=== PATIENT | male | born 1950 | race Caucasian/White ===

== ENCOUNTER → 2016-11-30 | Outpatient (REF) | payer MEDICARE | LOC: M LAB REF 12:10 | PROVIDERS: ATTEND Internal Medicine | DX: G40.309 Generalized idiopathic epilepsy and epileptic syndromes, not intractable, without status epilepticus (principal) ==

== ENCOUNTER → 2017-01-26 | Outpatient (REF) | payer MEDICARE | LOC: M SMT 16:54 | PROVIDERS: ATTEND Urology | DX: C61 Malignant neoplasm of prostate (principal) ==

== ENCOUNTER → 2017-05-07 | Outpatient (CLI) | payer MEDICARE | LOC: M SMT 10:40 | PROVIDERS: ATTEND Urology | DX: C61 Malignant neoplasm of prostate (principal) ==

== ENCOUNTER → 2017-06-03 | Outpatient (REF) | payer MEDICARE ==
[~2017-06-03] MED LIST: DILA100C PO; LAMO200T PO; LISI10TA4 PO; PERC5TAB12 PO; PLAV1TAB2 PO; SIMV40TA2 PO
[2017-06-03 14:09] LABS: FOLATE > 24.0 NG/ML (>5.4)
[2017-06-03 14:48] LABS: ALBUMIN 3.9 GM/DL (3.2-5.2); ALBUMIN/GLOBULIN RATIO 1.22 (1.00-1.93); ALKALINE PHOSPHATASE 114 U/L (45-117); ALT/SGPT 23 U/L (12-78); ANION GAP 8 MEQ/L (8-16); AST/SGOT 19 U/L (15-37); BILIRUBIN,TOTAL 0.3 MG/DL (0.2-1.0); BLOOD UREA NITROGEN 24 MG/DL (7-18); CALCIUM LEVEL 8.8 MG/DL (8.8-10.2); CARBON DIOXIDE LEVEL 27 MEQ/L (21-32); CHLORIDE LEVEL 105 MEQ/L (98-107); CHOLESTEROL LEVEL 147 MG/DL (<200); CREATININE FOR GFR 1.28 MG/DL (0.70-1.30); GLOMERULAR FILTRATION RATE 59.5 (>49); GLUCOSE, FASTING 79 MG/DL (80-110); POTASSIUM SERUM 4.5 MEQ/L (3.5-5.1); SODIUM LEVEL 140 MEQ/L (136-145); TOTAL PROTEIN 7.1 GM/DL (6.4-8.2); TRIGLYCERIDES LEVEL 91 MG/DL (<150)
== END ==
LOC: M LAB REF 13:24
PROVIDERS: ATTEND Internal Medicine
DX: I10 Essential (primary) hypertension (principal); G40.909 Epilepsy, unspecified, not intractable, without status epilepticus; Z79.899 Other long term (current) drug therapy; Z12.5 Encounter for screening for malignant neoplasm of prostate
CPT/HCPCS: 80053; 80061; 80175; 80185; 82746; G0103

== ENCOUNTER → 2017-08-04 | Outpatient (CLI) | payer MEDICARE | LOC: M SMT 14:56 | PROVIDERS: ATTEND Urology | DX: C61 Malignant neoplasm of prostate (principal) ==

== ENCOUNTER → 2017-08-31 | Outpatient (CLI) | payer MEDICARE ==
--- NOTE | 2017-08-31 12:19 | REP ---
Prostate sonography: History: Elevated PSA. Sonographic findings: Trans rectal prostate sonography demonstrates unremarkable seminal vesicles. Prostate gland is heterogeneously enlarged with calcifications and cystic changes noted. Glandular dimensions are measured at 5.1 x 4.0 x 5.0 cm with a calculated glandular volume of 52.8 ml. In the right side of the gland there is a 0.7 cm nodule and a 0.5 cm nodule. On the left a 1.0 cm nodule is seen. Transrectal sonographic guidance provided to Dr. Melendez who performed trans rectal ultrasound guided needle biopsy procedure . Signed by Favian Gannon MD 08/31/2017 12:10 P
== END ==
LOC: M SMT PRO 08:44
PROVIDERS: ATTEND Urology
DX: C61 Malignant neoplasm of prostate (principal); R97.20 Elevated prostate specific antigen [PSA]
CPT/HCPCS: 76872; 76942; G0416

== ENCOUNTER → 2017-12-02 | Outpatient (CLI) | payer MEDICARE ==
[2017-12-02 21:11] LABS: PROSTATIC SPECIFIC AG MONITOR 9.52 NG/ML (< 4.0)
== END ==
LOC: M SMT 13:06
DX: C61 Malignant neoplasm of prostate (principal)
CPT/HCPCS: 84153

== ENCOUNTER → 2018-01-05 | Outpatient (REF) | payer MEDICARE ==
[2018-01-05 14:46] LABS: PHENYTOIN (DILANTIN) 12.5 UG/ML (10.0-20.0)
== END ==
LOC: M LAB REF 13:05
DX: G40.309 Generalized idiopathic epilepsy and epileptic syndromes, not intractable, without status epilepticus (principal)

== ENCOUNTER → 2018-01-05 | Outpatient (REF) | payer MEDICARE | LOC: M LAB REF 16:15 | DX: L72.3 Sebaceous cyst (principal); G40.309 Generalized idiopathic epilepsy and epileptic syndromes, not intractable, without status epilepticus | CPT/HCPCS: 80185 ==

== ENCOUNTER → 2018-02-16 | Outpatient (CLI) | payer MEDICARE ==
[2018-02-16 19:17] LABS: PROSTATIC SPECIFIC AG MONITOR 9.36 NG/ML (< 4.0)
== END ==
LOC: M SMT 14:38
DX: C61 Malignant neoplasm of prostate (principal)
CPT/HCPCS: 84153

== ENCOUNTER → 2018-05-26 | Outpatient (CLI) | payer MEDICARE ==
[2018-05-26 13:22] LABS: PROSTATIC SPECIFIC AG MONITOR 9.71 NG/ML (< 4.0)
== END ==
LOC: M SMT 10:47
DX: C61 Malignant neoplasm of prostate (principal)
CPT/HCPCS: 84153

== ENCOUNTER → 2018-07-11 | Outpatient (REF) | payer MEDICARE ==
[2018-07-11 19:42] LABS: PHENYTOIN (DILANTIN) 12.5 UG/ML (10.0-20.0)
== END ==
LOC: M LAB REF 18:40
DX: G40.309 Generalized idiopathic epilepsy and epileptic syndromes, not intractable, without status epilepticus (principal)
CPT/HCPCS: 80185

== ENCOUNTER → 2018-09-07 | Outpatient (CLI) | payer MEDICARE | LOC: M SMT 11:12 | DX: C61 Malignant neoplasm of prostate (principal) | CPT/HCPCS: 84153 ==

== ENCOUNTER → 2018-09-20 | Outpatient (CLI) | payer MEDICARE | LOC: M SMT PRO 08:54 | DX: C61 Malignant neoplasm of prostate (principal) | CPT/HCPCS: G0416 ==

== ENCOUNTER → 2019-01-06 | Outpatient (CLI) | payer MEDICARE ==
[~2019-01-06] MED LIST changes: -LAMO200T PO; +LAMO200T2 PO
== END ==
LOC: M SMT 13:20
PROVIDERS: ATTEND Urology
DX: C61 Malignant neoplasm of prostate (principal)

== ENCOUNTER → 2019-01-16 | Outpatient (REF) | payer MEDICARE | LOC: M LAB REF 13:56 | PROVIDERS: ATTEND Internal Medicine | DX: G40.309 Generalized idiopathic epilepsy and epileptic syndromes, not intractable, without status epilepticus (principal) ==

== ENCOUNTER → 2019-03-28 | Outpatient (CLI) | payer MEDICARE | LOC: M SMT 14:44 | PROVIDERS: ATTEND Urology | DX: C61 Malignant neoplasm of prostate (principal) ==

== ENCOUNTER → 2019-07-06 | Outpatient (CLI) | payer MEDICARE | LOC: M SMT 13:35 | PROVIDERS: ATTEND Urology | DX: C61 Malignant neoplasm of prostate (principal) ==

== ENCOUNTER → 2019-07-25 | Outpatient (REF) | payer MEDICARE | LOC: M LAB REF 17:03 | PROVIDERS: ATTEND Internal Medicine | DX: G40.309 Generalized idiopathic epilepsy and epileptic syndromes, not intractable, without status epilepticus (principal) ==

== ENCOUNTER → 2019-10-03 | Outpatient (CLI) | payer MEDICARE | LOC: M SMT 15:10 | PROVIDERS: ATTEND Urology | DX: C61 Malignant neoplasm of prostate (principal) ==

== ENCOUNTER → 2019-10-31 | Outpatient (CLI) | payer MEDICARE ==
[~2019-10-31] MED LIST changes: -LAMO200T2 PO; +LAMO200T3 PO; -SIMV40TA2 PO; +SIMV40TA20 PO
--- NOTE | 2019-10-31 12:34 | REPPI ---
TRANSRECTAL PROSTATE ULTRASOUND WITH ULTRASOUND GUIDANCE FOR PROSTATE BIOPSY: Real-time sonographic evaluation of the prostate performed. Prostate measures 5.0 x 3.9 x 5.3 cm for a total volume of 52.6 mL. Echotexture is heterogeneous. Ultrasound guidance was provided for Dr. Melendez who performed ultrasound-guided biopsy of the prostate. Electronically Signed by James Aragon MD 11/03/2019 05:11 P
== END ==
LOC: M SMT PRO 09:25
PROVIDERS: ATTEND Urology
DX: C61 Malignant neoplasm of prostate (principal)
CPT/HCPCS: 55700; 76942; G0416

== ENCOUNTER → 2020-01-23 | Outpatient (REF) | payer MEDICARE ==
[2020-01-23 17:13] LABS: PHENYTOIN (DILANTIN) 18.7 UG/ML (10.0-20.0)
[2020-01-23 17:17] LABS: FOLATE 14.4 NG/ML (>5.4)
== END ==
LOC: M LAB REF 16:17
PROVIDERS: ATTEND Internal Medicine
DX: G40.309 Generalized idiopathic epilepsy and epileptic syndromes, not intractable, without status epilepticus (principal)

== ENCOUNTER → 2020-05-06 | Outpatient (CLI) | payer MEDICARE | LOC: M PLALAB 14:03 | PROVIDERS: ATTEND Urology | DX: C61 Malignant neoplasm of prostate (principal) ==

== ENCOUNTER → 2020-07-30 | Outpatient (REF) | payer MEDICARE | LOC: M LAB REF 19:27 | PROVIDERS: ATTEND Internal Medicine | DX: G40.309 Generalized idiopathic epilepsy and epileptic syndromes, not intractable, without status epilepticus (principal) ==

== ENCOUNTER 2020-10-20 12:30 | Emergency (ER) | payer MEDICARE ==
[~2020-10-20] VITALS: Ht 180.3 cm; Wt 99.1 kg
[2020-10-20 13:01] LABS: BASO % 0.6 % (0.0-1.0); EOS # 0.4 10^3/uL (0.0-0.5); EOS % 6.6 % (0.0-3.0); HEMATOCRIT 47.6 % (42.0-52.0); HEMOGLOBIN 15.9 g/dl (13.5-17.5); LYMPH # 1.7 10^3/uL (1.5-5.0); LYMPH % 26.3 % (24.0-44.0); MEAN CORPUSCULAR HEMOGLOBIN 31.5 pg (27.0-33.0); MEAN CORPUSCULAR HGB CONC 33.4 g/dl (32.0-36.5); MEAN CORPUSCULAR VOLUME 94.4 fl (80.0-96.0); MONO # 0.9 10^3/uL (0.0-0.8); MONO % 13.9 % (0.0-5.0); NEUTROPHILS # 3.4 10^3/uL (1.5-8.5); NEUTROPHILS % 52.3 % (36.0-66.0); PLATELET COUNT, AUTOMATED 303 10^3/uL (150-450); RED BLOOD COUNT 5.04 10^6/uL (4.30-6.10); WHITE BLOOD COUNT 6.4 10^3/uL (4.0-10.0)
--- NOTE | 2020-10-20 13:29 | REP ---
INDICATION: dizzy/hx tia COMPARISON: 02/10/2011 TECHNIQUE: Axial noncontrast images from the skull base to the thoracic inlet with coronal reformations. This CT examination was performed using the following dose reduction techniques: Automated exposure control, adjustment of mA and/or kv according to the patient's size, and use of iterative reconstruction technique. FINDINGS: Age-related atrophy, periventricular leukomalacia and microvascular ischemic changes are appreciated. Evidence for old left frontal lobe infarct noted. The ventricles and sulci are symmetric. Aragon-white differentiation is maintained. There is no evidence for acute intracranial hemorrhage, mass/mass effect, pathology or infarction. No extra-axial fluid collection. Calvarium is intact. Paranasal sinuses and mastoid air cells are clear. IMPRESSION: Age related atrophy and microvascular ischemic changes. No acute intracranial hemorrhage, infarction, or mass/mass effect. Old left frontal lobe infarct again noted. <Electronically signed by Darrick Gomez > 10/20/20 [id number]
[2020-10-20] MEDS ORDERED: MECLIZINE 25 MG TABLET PO ONE (13:30)
[2020-10-20] MEDS ORDERED: NS 1,000 ML IV SCH (13:30)
[2020-10-20 13:40] LABS: BLOOD UREA NITROGEN 17 MG/DL (7-18); CALCIUM LEVEL 8.6 MG/DL (8.8-10.2); CARBON DIOXIDE LEVEL 30 MEQ/L (21-32); CHLORIDE LEVEL 102 MEQ/L (98-107); CK-MB VALUE MASS 1.8 NG/ML (<3.6); CPK CREATINE PHOSPHOKINASE 91 U/L (39-308); CREATININE FOR GFR 1.25 MG/DL (0.70-1.30); GLOMERULAR FILTRATION RATE > 60.0 (>42); GLUCOSE, FASTING 84 MG/DL (70-100); MB/CK RELATIVE INDEX 1.98 (< OR =4); POTASSIUM SERUM 4.4 MEQ/L (3.5-5.1); SODIUM LEVEL 137 MEQ/L (136-145); TROPONIN I < 0.02 NG/ML (< 0.10)
[2020-10-20] MEDS ORDERED: MECL1TAB31 PO (15:23)
[2020-10-20 16:10] VITALS: BP 111/72
--- NOTE | 2020-10-20 20:40 | ECGEPIP ---
[facility] - ED Test Date: 2020-10-20 Pat Name: MICHELLE MILLS Department: Room: - Gender: Male Fitting Room Supervisor: lazaro : 1950 Requested By: KANE Cuba Order Number: [id number] Reading MD: Cinthia Kent Measurements Intervals [place] Rate: 58 P: 6 OR: 196 QRS: -25 QRSD: 98 T: 43 QT: 410 QTc: 403 Interpretive Statements SINUS BRADYCARDIA BORDERLINE LEFT AXIS DEVIATION NO PRIOR Electronically Signed on 10-20-2020 20:40:01 EST by Cinthia Kent
== END 2020-10-20 16:20 | disposition home or self-care (01) ==
LOC: EDBD 12:30 → M ED 12:30
DX: R42 Dizziness and giddiness (principal); I11.9 Hypertensive heart disease without heart failure; R00.1 Bradycardia, unspecified; Z86.73 Personal history of transient ischemic attack (TIA), and cerebral infarction without residual deficits; Z79.899 Other long term (current) drug therapy

== ENCOUNTER → 2020-10-22 | Outpatient (REF) | payer MEDICARE ==
[~2020-10-22] MED LIST changes: +MECL1TAB31 PO
== END ==
LOC: M SMT 13:09
PROVIDERS: ATTEND Urology
DX: C61 Malignant neoplasm of prostate (principal)

== ENCOUNTER → 2020-10-29 | Outpatient (CLI) | payer MEDICARE ==
[~2020-10-29] MED LIST changes: +MECL-86 PO; +PROP80CA PO
--- NOTE | 2020-10-29 12:59 | REPPI ---
INDICATION: ELEVATED PSA. COMPARISON: 10/31/2019. TECHNIQUE: Ultrasound prostate performed utilizing transrectal probe. FINDINGS: Prostate measures 5.2 x 4.4 x 5.3 cm, total volume is 63.8 mL. IMPRESSION: Ultrasound guidance was provided for Dr. Melendez who performed ultrasound-guided biopsy of the prostate. <Electronically signed by James Aragon > 10/29/20 [id number]
== END ==
LOC: M SMT PRO 08:22
PROVIDERS: ATTEND Urology
DX: C61 Malignant neoplasm of prostate (principal)
CPT/HCPCS: 55700; 76942; G0416

== ENCOUNTER 2020-11-04 14:49 | Observation (INO) | payer OTHER, MEDICARE ==
[~2020-11-04] VITALS: Ht 182.9 cm; Wt 213.6 kg
[~2020-11-04 14:49] MED LIST changes: -MECL-86 PO; -PROP80CA PO
--- NOTE | 2020-11-04 16:24 | REP ---
INDICATION: Syncope/near-syncope. COMPARISON: Comparison chest x-ray January 06, 2013. TECHNIQUE: Portable upright AP chest radiograph. FINDINGS: The lungs are well inflated and free of infiltrate. Pleural angles are sharp. Heart size is normal. Pulmonary vasculature is not increased. The thoracic aorta is slightly tortuous. There is linear platelike atelectasis in the left inferior perihilar region today. No definite infiltrate. There are multiple periarticular calcifications adjacent to the proximal humerus on the right. Mild to moderate degenerative changes are seen in the shoulders bilaterally. IMPRESSION: No infiltrate seen. Linear discoid atelectasis in the left inferior perihilar region. Periarticular soft tissue calcifications adjacent to the right shoulder <Electronically signed by Oscar Gannon > 11/04/20 [id number]
[2020-11-04 16:35] LABS: BASO % 0.5 % (0.0-1.0); EOS # 0.1 10^3/uL (0.0-0.5); HEMATOCRIT 46.4 % (42.0-52.0); HEMOGLOBIN 15.9 g/dl (13.5-17.5); LYMPH # 1.2 10^3/uL (1.5-5.0); MEAN CORPUSCULAR HEMOGLOBIN 32.4 pg (27.0-33.0); MEAN CORPUSCULAR HGB CONC 34.3 g/dl (32.0-36.5); MEAN CORPUSCULAR VOLUME 94.5 fl (80.0-96.0); MONO # 0.8 10^3/uL (0.0-0.8); MONO % 12.3 % (0.0-5.0); NEUTROPHILS # 4.3 10^3/uL (1.5-8.5); NEUTROPHILS % 66.9 % (36.0-66.0); PLATELET COUNT, AUTOMATED 301 10^3/uL (150-450); RED BLOOD COUNT 4.91 10^6/uL (4.30-6.10); WHITE BLOOD COUNT 6.4 10^3/uL (4.0-10.0)
--- NOTE | 2020-11-04 17:18 | REPVR ---
PROCEDURE INFORMATION: Exam: CT Head Without Contrast Exam date and time: 11/04/2020 3:57 PM Age: 70 years old Clinical indication: Syncope and collapse TECHNIQUE: Imaging protocol: Computed tomography of the head without contrast. Radiation optimization: All CT scans at this facility use at least one of these dose optimization techniques: automated exposure control; mA and/or kV adjustment per patient size (includes targeted exams where dose is matched to clinical indication); or iterative reconstruction. COMPARISON: CT Head without contrast 10/20/2020 12:53 PM FINDINGS: Brain: A chronic left insular and frontal lobe infarct is again noted. There is no acute intracranial hemorrhage, cerebral edema, mass effect, or midline shift. Age-related cerebral and cerebellar volume loss is present. Cerebral ventricles: No hydrocephalus. Bones/joints: No acute fracture. Paranasal sinuses: Mild mucosal thickening is present in the frontal sinus. Mastoid air cells: Visualized mastoid air cells are well aerated. Orbital cavity: Unremarkable as visualized. Soft tissues: Unremarkable. IMPRESSION: 1. No acute abnormality. 2. Chronic findings as discussed above. Electronically signed by: Donaldo Fuentes On 11/04/2020 17:18:14 PM
[2020-11-04 18:03] LABS: BLOOD UREA NITROGEN 13 MG/DL (7-18); CALCIUM LEVEL 8.8 MG/DL (8.8-10.2); CARBON DIOXIDE LEVEL 30 MEQ/L (21-32); CHLORIDE LEVEL 104 MEQ/L (98-107); CK-MB VALUE MASS 1.3 NG/ML (<3.6); CPK CREATINE PHOSPHOKINASE 82 U/L (39-308); CREATININE FOR GFR 1.11 MG/DL (0.70-1.30); GLOMERULAR FILTRATION RATE > 60.0 (>42); GLUCOSE, FASTING 96 MG/DL (70-100); MB/CK RELATIVE INDEX 1.59 (< OR =4); PHENYTOIN (DILANTIN) 22.2 UG/ML (10.0-20.0); POTASSIUM SERUM 4.5 MEQ/L (3.5-5.1); SODIUM LEVEL 139 MEQ/L (136-145); TROPONIN I < 0.02 NG/ML (< 0.10)
[2020-11-04] MEDS ORDERED: PROP80CA PO (18:50)
[2020-11-04 19:00] LABS: RSV AMPLIFICATION NEGATIVE (NEGATIVE)
[2020-11-04] MEDS ORDERED: MECL-86 PO (19:04)
[2020-11-04] MEDS ORDERED: MAALOX 30 ML SUSP *UDC PO PRN (21:00)
[2020-11-04] MEDS ORDERED: ACETAMINOPHEN TAB 650MG DOSE (2X325MG) PO PRN (21:00)
[2020-11-04] MEDS ORDERED: MOM 30ML SUSPENSION UDC PO PRN (21:00)
[2020-11-04] MEDS ORDERED: MECLIZINE 25 MG TABLET PO PRN (21:15)
[2020-11-05 01:24] VITALS: BP 150/84
[2020-11-05] MEDS: lamoTRIgine 100MG TAB PO SCH ×3 (01:58→21:13)
[2020-11-05 02:00] VITALS: BP_SYST 128; BP_SYST 130; BP_SYST 150; BP_DIAS 82; BP_DIAS 84; BP_DIAS 88; O2SAT 97
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
--- NOTE | 2020-11-05 05:03 | REPVR ---
PROCEDURE INFORMATION: Exam: US Duplex Bilateral Extracranial Arteries Exam date and time: 11/05/2020 12:21 AM Age: 70 years old Clinical indication: Alteration of consciousness; Transient alteration of awareness; Additional info: AMS w/ h/o CVA TECHNIQUE: Imaging protocol: Real-time Duplex ultrasound scan of the bilateral carotid and vertebral arteries combining duarte scale, color Doppler and spectral waveform analysis. Bilateral exam. COMPARISON: CT Head without contrast 11/04/2020 4:52 PM FINDINGS: Right common carotid artery: Normal waveform seen in the right CCA with peak systolic velocities of 56.2 centimeter/second, 65.9 centimeter/second and 62.7 centimeter/second in the proximal , mid and distal CCAs respectively. Right internal carotid artery: Small amount of peripheral noncalcified echogenic mural plaques seen in the right carotid arteries. Normal waveform seen in the right carotid bulb with peak systolic velocity of 50.1 centimeter/second. Normal waveform seen in the right ICA with peak systolic velocities of 36.4 centimeter/second, 31 centimeter/second and 40.3 centimeter/second in the proximal, mid and distal ICAs respectively. Right ICA/CCA ratio: Within normal limits. 0.61. Right external carotid artery: No stenosis in the origin. Right vertebral artery: Antegrade flow seen in the right vertebral artery with peak systolic velocity of 51.6 centimeter/second. Left common carotid artery: Normal waveform seen in the left CCA with peak systolic velocities of 57 centimeter/second, 62.4 centimeter/second and 54.1 centimeter/second in the proximal , mid and distal CCAs respectively. Left internal carotid artery: Small amount of peripheral noncalcified echogenic mural plaques seen in the left carotid arteries. Normal waveform seen in the left carotid bulb with peak systolic velocity of 42.8 centimeter/second. Normal waveform seen in the left ICA with peak systolic velocities of 63.5 centimeter/second, 31.9 centimeter/second and 29.9 centimeter/second in the proximal, mid and distal ICAs respectively. Left ICA/CCA ratio: Within normal limits. 0.54. Left external carotid artery: No stenosis in the origin. Left vertebral artery: Antegrade flow seen in the left vertebral artery with peak systolic velocity of 50.9 centimeter/second. IMPRESSION: 1. Small peripheral mural noncalcified echogenic plaques in the right and left carotid arteries but with no sonographic evidence of hemodynamically significant stenosis. 2. Antegrade flow seen in the right and left vertebral arteries. REFERENCES: SRU CRITERIA. The degree of internal carotid artery stenosis is based on criteria defined by the Society of Radiologists in Ultrasound (SRU). Normal is no stenosis. Mild is less than 50% stenosis. Moderate is 50-69% stenosis. Severe is greater than 69% stenosis to near occlusion. Near occlusion is a markedly narrowed lumen. Total occlusion is no detectable patent lumen. Electronically signed by: Joe Sullivan On 11/05/2020 05:02:58 AM
[2020-11-05 06:00] VITALS: BP 167/97
[2020-11-05] MEDS: PROPRANOLOL 80 MG LA CAP PO SCH (08:43)
[2020-11-05] MEDS: PHENYTOIN ER 100 MG CAP PO SCH ×2 (08:43→21:13)
[2020-11-05] MEDS: CLOPIDOGREL 75 MG TAB PO SCH (08:43)
[2020-11-05] MEDS: ENOXAPARIN 40MG/0.4ML SYRINGE (J1650 PER 10MG) SC SCH (08:44)
[2020-11-05 09:31] VITALS: O2SAT 97
[2020-11-05 14:00] VITALS: BP 124/78
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
[2020-11-05 22:00] VITALS: BP 154/90
[2020-11-06 06:00] VITALS: BP 135/76; O2SAT 97
[2020-11-06 06:11] VITALS: BP_SYST 146; BP_SYST 150; BP_DIAS 89; BP_DIAS 92; BP_DIAS 96
[2020-11-06 06:34] LABS: BASO % 0.4 % (0.0-1.0); EOS # 0.5 10^3/uL (0.0-0.5); EOS % 7.2 % (0.0-3.0); HEMATOCRIT 42.5 % (42.0-52.0); HEMOGLOBIN 14.1 g/dl (13.5-17.5); LYMPH # 2.5 10^3/uL (1.5-5.0); LYMPH % 35.2 % (24.0-44.0); MEAN CORPUSCULAR HEMOGLOBIN 31.5 pg (27.0-33.0); MEAN CORPUSCULAR HGB CONC 33.2 g/dl (32.0-36.5); MEAN CORPUSCULAR VOLUME 94.9 fl (80.0-96.0); MONO # 0.9 10^3/uL (0.0-0.8); MONO % 13.2 % (0.0-5.0); NEUTROPHILS # 3.1 10^3/uL (1.5-8.5); NEUTROPHILS % 43.6 % (36.0-66.0); PLATELET COUNT, AUTOMATED 266 10^3/uL (150-450); RED BLOOD COUNT 4.48 10^6/uL (4.30-6.10); WHITE BLOOD COUNT 7.1 10^3/uL (4.0-10.0)
[2020-11-06 07:01] LABS: BLOOD UREA NITROGEN 18 MG/DL (7-18); CALCIUM LEVEL 8.4 MG/DL (8.8-10.2); CARBON DIOXIDE LEVEL 27 MEQ/L (21-32); CHLORIDE LEVEL 107 MEQ/L (98-107); CREATININE FOR GFR 1.05 MG/DL (0.70-1.30); GLOMERULAR FILTRATION RATE > 60.0 (>42); GLUCOSE, FASTING 78 MG/DL (70-100); POTASSIUM SERUM 3.4 MEQ/L (3.5-5.1); SODIUM LEVEL 140 MEQ/L (136-145)
[2020-11-06] MEDS ORDERED: POTASSIUM CHLORIDE 10 MEQ SR TABLET PO ONE (07:30)
--- NOTE | 2020-11-06 07:36 | ECGEPIP ---
[facility] - ED Test Date: 2020-11-04 Pat Name: MICHELLE MILLS Department: Room: - Gender: Male [employer] Director: reji : 1950 Requested By: Theodore Skinner Order Number: [id number] Reading MD: Theodore Sotelo Measurements Intervals [place] Rate: 72 P: 25 DC: 183 QRS: -27 QRSD: 106 T: 28 QT: 377 QTc: 414 Interpretive Statements SINUS RHYTHM POOR R WAVE PROGRESSION NONSPECIFIC T WAVE ABNORMALITY(S) SIMILAR TO 10/20/20 Electronically Signed on 11-06-2020 7:36:02 EST by Theodore Sotelo
[2020-11-06 08:57] VITALS: BP 137/83
[2020-11-06] MEDS: CLOPIDOGREL 75 MG TAB PO SCH (08:57)
[2020-11-06] MEDS: PHENYTOIN ER 100 MG CAP PO SCH (08:57)
[2020-11-06] MEDS: ENOXAPARIN 40MG/0.4ML SYRINGE (J1650 PER 10MG) SC SCH (08:57)
[2020-11-06] MEDS: PROPRANOLOL 80 MG LA CAP PO SCH (08:57)
[2020-11-06] MEDS: lamoTRIgine 100MG TAB PO SCH (08:57)
--- NOTE | 2020-11-07 12:31 | ECHO ---
DATE OF PROCEDURE: 11/05/2020 Age: 70 Gender: Male Height: 72 inches Weight: 209 pounds Body surface area: 2.17 m2 PATIENT LOCATION: Inpatient [address] [place] [address], Room 4208. REFERRING PHYSICIAN: Juan Francisco Oscar DO. INDICATION: Syncope. MEASUREMENTS: 2D Measurements: RV 3.6 cm LV 4.7 cm Septum 1.2 cm Posterior wall 1.2 cm Aortic Root 4.0 cm LA 4.0 cm LVEF 65% Doppler Measurements: AV 1.0 m/s LVOT 0.8 m/s LVOT diameter 2.0 cm MV-E 53, A 61, E/A ratio 0.9 Early mitral deceleration time 201 msec E prime medial 6.2, A prime medial 8.4, E prime lateral 9.6 Average E/E prime ratio 6.7/PCWP - 10 mmHg PV 0.7 m/s Pulmonary artery acceleration time 124 msec RVSP 30 mmHg IVC 1.3 cm COMMENTS: Sinus bradycardia without intraventricular conduction disturbance. Technically challenging study in light of the patients body habitus, but some diagnostically useful information was still obtained. M-mode and two-dimensional echocardiography was performed with pulse, continuous wave, color flow, and tissue Doppler studies. Borderline concentric left ventricular hypertrophy with normal wall motion. Mildly dilated left atrium with grade 1 LV diastolic dysfunction, but currently normal estimated mean left atrial pressure. Normal right heart chamber sizes and motion with Doppler evidence of pulmonary arterial pressure upper limits of normal to borderline increased. Normal IVC size and collapse against an elevated central venous pressure. Mildly dilated aortic root. Mild aortic valvular sclerosis with trace to very mild aortic insufficiency. Mild mitral annular calcification with trace insufficiency. Normal appearing tricuspid valve with very mild insufficiency. No apparent intracardiac mass or pericardial effusion. MTDD
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
== END 2020-11-06 11:45 | disposition home or self-care (01) ==
LOC: EDBD 14:49 → M ED 14:49 → EEVIPCON 14:50 → M ED INP 14:50 → ENRESERV 23:18 → M MSPAV 11-05 01:24
PROVIDERS: ADMIT Family Medicine; ATTEND Internal Medicine Nephrology
DX: R41.82 Altered mental status, unspecified (principal); V89.2XXA Person injured in unspecified motor-vehicle accident, traffic, initial encounter; Y92.410 Unspecified street and highway as the place of occurrence of the external cause; Y99.9 Unspecified external cause status; Y93.9 Activity, unspecified; G40.909 Epilepsy, unspecified, not intractable, without status epilepticus; G25.0 Essential tremor; Z86.73 Personal history of transient ischemic attack (TIA), and cerebral infarction without residual deficits; Z85.46 Personal history of malignant neoplasm of prostate; Z79.01 Long term (current) use of anticoagulants; Z79.899 Other long term (current) drug therapy
CPT/HCPCS: 36415; 70450; 71045; 80048; 80185; 81001; 82550; 82553; 84443; 84484; 85025; 87631; 87641; 93005; 93041; 93306; 93880; 94760; 96372; 99285; J1650

== ENCOUNTER → 2021-02-07 | Outpatient (REF) | payer MEDICARE ==
[~2021-02-07] MED LIST changes: +LISI10TA22 PO; -LISI10TA4 PO; +MECL-86 PO; +PROP80CA PO
[2021-02-07 17:25] LABS: PHENYTOIN (DILANTIN) 19.4 UG/ML (10.0-20.0)
[2021-02-07 17:32] LABS: FOLATE 16.1 NG/ML (>5.4)
== END ==
LOC: M LAB REF 16:16
PROVIDERS: ATTEND Internal Medicine
DX: G40.309 Generalized idiopathic epilepsy and epileptic syndromes, not intractable, without status epilepticus (principal)

== ENCOUNTER → 2021-03-04 | Outpatient (CLI) | payer MEDICARE ==
--- NOTE | 2021-03-04 13:57 | REP ---
INDICATION: LUMBAR DISC DEGEN, EVAL ACUTE FX PELVIS/HIP. COMPARISON: None. TECHNIQUE/RADIOTRACER AND DOSE: Following the intravenous administration of 22.0 mCi technetium 99 M MDP, immediate flow, blood pool and 2.5 hour delayed images are performed of the pelvis in multiple projections. FINDINGS: There is no area of abnormal blood flow or blood pooling. Delayed images show homogeneous radiotracer uptake throughout the osseous structures of the pelvis. There is no occult fracture or abnormal uptake. Renal and bladder activity are seen. IMPRESSION: No scintigraphic abnormalities of the pelvic osseous structures. No occult fracture. <Electronically signed by James Aragon > 03/04/21 [id number]
== END ==
LOC: M RAD 10:05
PROVIDERS: ATTEND Orthopaedic Surgery
DX: M51.16 Intervertebral disc disorders with radiculopathy, lumbar region (principal)
CPT/HCPCS: 78315; A9503

== ENCOUNTER → 2021-04-28 | Outpatient (REF) | payer MEDICARE | LOC: M PLALAB 16:50 → M SMT 16:50 | PROVIDERS: ATTEND Urology | DX: C61 Malignant neoplasm of prostate (principal) ==

== ENCOUNTER → 2021-08-06 | Outpatient (CLI) | payer MEDICARE | LOC: M PLALAB 11:34 | PROVIDERS: ATTEND Urology | DX: C61 Malignant neoplasm of prostate (principal) ==

== ENCOUNTER → 2021-08-19 | Outpatient (REF) | payer MEDICARE | LOC: M LAB REF 13:18 | PROVIDERS: ATTEND Internal Medicine | DX: G40.309 Generalized idiopathic epilepsy and epileptic syndromes, not intractable, without status epilepticus (principal) ==

== ENCOUNTER → 2021-11-25 | Outpatient (REF) | payer MEDICARE ==
[2021-11-25 17:27] LABS: APPEARANCE, URINE CLEAR (CLEAR); BACTERIA, URINE AUTO NEGATIVE (NEGATIVE); BILIRUBIN, URINE AUTO NEGATIVE (NEGATIVE); BLOOD, URINE BLOOD NEGATIVE (NEGATIVE); COLOR, URINE YELLOW (YELLOW); GLUCOSE, URINE (UA) AUTO NEGATIVE (NEGATIVE); KETONE, URINE AUTO NEGATIVE (NEGATIVE); LEUKOCYTE ESTERASE, URINE AUTO NEGATIVE (NEGATIVE); MUCUS, URINE SMALL (NEGATIVE); NITRITE, URINE AUTO NEGATIVE (NEGATIVE); PROTEIN, URINE AUTO NEGATIVE (NEGATIVE); RBC, URINE AUTO 1 /HPF (0-3); SPECIFIC GRAVITY URINE AUTO 1.019 (1.002-1.035); SQUAMOUS EPITHELIAL CELL UR AU 0 /HPF (0-6); UROBILINOGEN, URINE AUTO 0.2 mg/dL (0.0-2.0); WBC, URINE AUTO 1 /HPF (0-3)
[2021-11-25 19:08] LABS: INR 1.25; PROTHROMBIN TIME 16.1 SECONDS (12.7-14.5)
[2021-11-25 19:09] LABS: PARTIAL THROMBOPLASTIN TIME 42.8 SECONDS (25.9-37.0)
== END ==
LOC: M LAB REF 16:25
PROVIDERS: ATTEND Internal Medicine
DX: Z01.810 Encounter for preprocedural cardiovascular examination (principal); G40.309 Generalized idiopathic epilepsy and epileptic syndromes, not intractable, without status epilepticus; Z79.899 Other long term (current) drug therapy; Z79.01 Long term (current) use of anticoagulants

== ENCOUNTER → 2021-11-25 | Outpatient (CLI) | payer MEDICARE | LOC: M LAB 15:22 | PROVIDERS: ATTEND Urology | DX: Z01.818 Encounter for other preprocedural examination (principal); C61 Malignant neoplasm of prostate; G40.309 Generalized idiopathic epilepsy and epileptic syndromes, not intractable, without status epilepticus; Z79.899 Other long term (current) drug therapy; Z79.01 Long term (current) use of anticoagulants ==

== ENCOUNTER 2021-12-05 21:22 | Emergency (ER) | payer MEDICARE ==
[~2021-12-05] VITALS: Ht 180.3 cm; Wt 94.5 kg
[~2021-12-05 21:22] MED LIST changes: +BACTDSTA PO; +COLA100C5 PO; +PERCOCET PO
[2021-12-05 23:45] LABS: BASO % 0.2 % (0.0-1.0); HEMATOCRIT 44.6 % (42.0-52.0); HEMOGLOBIN 14.9 g/dl (13.5-17.5); LYMPH # 1.3 10^3/uL (1.5-5.0); MEAN CORPUSCULAR HEMOGLOBIN 31.4 pg (27.0-33.0); MEAN CORPUSCULAR HGB CONC 33.4 g/dl (32.0-36.5); MEAN CORPUSCULAR VOLUME 93.9 fl (80.0-96.0); MONO # 1.8 10^3/uL (0.0-0.8); MONO % 11.1 % (2.0-8.0); NEUTROPHILS # 13.2 10^3/uL (1.5-8.5); NEUTROPHILS % 79.5 % (36.0-66.0); PLATELET COUNT, AUTOMATED 377 10^3/uL (150-450); RED BLOOD COUNT 4.75 10^6/uL (4.30-6.10); WHITE BLOOD COUNT 16.7 10^3/uL (4.0-10.0)
[2021-12-05] MEDS ORDERED: ISOVUE-370 76% 100ML VIAL As Ordered ONE (23:55)
[2021-12-05 23:59] LABS: ALBUMIN 3.4 GM/DL (3.2-5.2); BILIRUBIN,DIRECT 0.2 MG/DL (0.0-0.2); BILIRUBIN,TOTAL 0.5 MG/DL (0.2-1.0)
[2021-12-06] MEDS ORDERED: METOCLOPRAMIDE INJ 10MG/2ML VIAL (J2765 PER 1) IV ONE (03:05)
[2021-12-06] MEDS ORDERED: MAGNESIUM CITRATE 300 ML BTL PO ONE (03:05)
[2021-12-06 05:40] VITALS: BP 144/76
== END 2021-12-06 06:52 | disposition home or self-care (01) ==
LOC: M ED 21:22
DX: K56.7 Ileus, unspecified (principal); I10 Essential (primary) hypertension; Z90.89 Acquired absence of other organs; Z79.899 Other long term (current) drug therapy
CPT/HCPCS: 36415; 51798; 74177; 80047; 80076; 83605; 83690; 85025; 93041; 99284; J2765; Q9967

== ENCOUNTER → 2021-12-15 | Outpatient (CLI) | payer MEDICARE | LOC: M WUC 11:56 | PROVIDERS: ATTEND Internal Medicine | DX: K56.7 Ileus, unspecified (principal) ==

== ENCOUNTER → 2021-12-31 | Outpatient (CLI) | payer MEDICARE | LOC: M PLALAB 09:23 | PROVIDERS: ATTEND Urology | DX: C61 Malignant neoplasm of prostate (principal) ==

== ENCOUNTER → 2022-02-18 | Outpatient (REF) | payer MEDICARE ==
[2022-02-18 16:53] LABS: PHENYTOIN (DILANTIN) 18.1 UG/ML (10.0-20.0)
[2022-02-18 18:27] LABS: FOLATE 13.7 NG/ML (>5.4)
== END ==
LOC: M LAB REF 16:09
PROVIDERS: ATTEND Internal Medicine
DX: G40.309 Generalized idiopathic epilepsy and epileptic syndromes, not intractable, without status epilepticus (principal)

== ENCOUNTER → 2022-04-21 | Outpatient (CLI) | payer MEDICARE | LOC: M LAB 11:42 | PROVIDERS: ATTEND Urology | DX: C61 Malignant neoplasm of prostate (principal) ==

== ENCOUNTER → 2022-07-28 | Outpatient (CLI) | payer MEDICARE | LOC: M PLALAB 13:15 | PROVIDERS: ATTEND Urology | DX: C61 Malignant neoplasm of prostate (principal) ==

== ENCOUNTER 2022-10-28 23:53 | Emergency (ER) | payer MEDICARE ==
[~2022-10-28] VITALS: Ht 180.3 cm; Wt 95.5 kg
[~2022-10-28 23:53] MED LIST changes: +CLOP75TA99 PO; -PLAV1TAB2 PO
[2022-10-29 09:28] VITALS: BP 139/82
== END 2022-10-29 09:27 | disposition home or self-care (01) ==
LOC: M ED 23:53
DX: K40.90 Unilateral inguinal hernia, without obstruction or gangrene, not specified as recurrent (principal); I10 Essential (primary) hypertension; E78.5 Hyperlipidemia, unspecified; C61 Malignant neoplasm of prostate; G40.89 Other seizures; Z79.899 Other long term (current) drug therapy

== ENCOUNTER → 2022-10-30 | Outpatient (CLI) | payer MEDICARE | LOC: M PLALAB 09:32 | PROVIDERS: ATTEND Urology | DX: C61 Malignant neoplasm of prostate (principal) ==

== ENCOUNTER → 2022-12-10 | Outpatient (CLI) | payer MEDICARE ==
[~2022-12-10] MED LIST changes: +BAYE81TA10 PO; +PHEN100C PO; +PROP60CA PO; +VITA100T59 PO; +VITMTA PO
== END ==
LOC: M LABSMTC 09:37
PROVIDERS: ATTEND Anesthesiology
DX: Z01.812 Encounter for preprocedural laboratory examination (principal); Z11.52 Encounter for screening for COVID-19

== ENCOUNTER 2022-12-15 08:02 | Day surgery (SDC) | payer MEDICARE ==
[~2022-12-15] VITALS: Ht 180.3 cm; Wt 97.3 kg
[~2022-12-15 08:02] MED LIST changes: +NS 1,000 ML IV ONE
[2022-12-15] MEDS ORDERED: CLOP75TA99 PO (08:41)
[2022-12-15 10:22] VITALS: BP 148/91
== END 2022-12-15 10:24 | disposition home or self-care (01) ==
LOC: M OPP 08:02
PROVIDERS: ATTEND Internal Medicine Gastroenterology
DX: Z86.010 Personal history of colon polyps (principal); K64.8 Other hemorrhoids; Z79.02 Long term (current) use of antithrombotics/antiplatelets; Z79.82 Long term (current) use of aspirin; Z79.899 Other long term (current) drug therapy; Z85.46 Personal history of malignant neoplasm of prostate; I10 Essential (primary) hypertension

== ENCOUNTER → 2023-02-02 | Outpatient (CLI) | payer MEDICARE ==
[~2023-02-02] MED LIST changes: -NS 1,000 ML IV ONE
== END ==
LOC: M PLALAB 14:24
PROVIDERS: ATTEND Urology
DX: C61 Malignant neoplasm of prostate (principal)

== ENCOUNTER → 2023-02-24 | Outpatient (REF) | payer MEDICARE | LOC: M LAB REF 16:07 | PROVIDERS: ATTEND Internal Medicine | DX: G40.309 Generalized idiopathic epilepsy and epileptic syndromes, not intractable, without status epilepticus (principal) ==

== ENCOUNTER → 2023-03-30 | Outpatient (REF) | payer MEDICARE | LOC: M LAB REF 16:23 | PROVIDERS: ATTEND Internal Medicine | DX: G40.309 Generalized idiopathic epilepsy and epileptic syndromes, not intractable, without status epilepticus (principal) ==

== ENCOUNTER → 2023-05-13 | Outpatient (CLI) | payer MEDICARE | LOC: M PLALAB 10:12 | PROVIDERS: ATTEND Urology | DX: C66.1 Malignant neoplasm of right ureter (principal) ==

== ENCOUNTER → 2023-08-31 | Outpatient (REF) | payer MEDICARE ==
[~2023-08-31] MED LIST changes: +MECL-209 PO; -MECL1TAB31 PO
[2023-08-31 18:32] LABS: PHENYTOIN (DILANTIN) 9.3 UG/ML (10.0-20.0)
[2023-08-31 18:35] LABS: FOLATE 13.86 NG/ML (>5.4)
== END ==
LOC: M LAB REF 17:54
PROVIDERS: ATTEND Internal Medicine
DX: G40.309 Generalized idiopathic epilepsy and epileptic syndromes, not intractable, without status epilepticus (principal)

== ENCOUNTER → 2023-11-17 | Outpatient (CLI) | payer MEDICARE | LOC: M PLALAB 13:26 | PROVIDERS: ATTEND Urology | DX: C61 Malignant neoplasm of prostate (principal) ==

== ENCOUNTER → 2024-03-06 | Outpatient (REF) | payer MEDICARE ==
[2024-03-06 17:56] LABS: PHENYTOIN (DILANTIN) 19.1 UG/ML (10.0-20.0)
[2024-03-06 18:04] LABS: FOLATE 17.58 NG/ML (>5.4)
== END ==
LOC: M LAB REF 17:36
PROVIDERS: ATTEND Internal Medicine
DX: G40.309 Generalized idiopathic epilepsy and epileptic syndromes, not intractable, without status epilepticus (principal)

== ENCOUNTER → 2024-06-05 | Outpatient (CLI) | payer MEDICARE | LOC: M PLALAB 11:12 | PROVIDERS: ATTEND Urology | DX: C61 Malignant neoplasm of prostate (principal) ==

== ENCOUNTER → 2024-09-05 | Outpatient (REF) | payer MEDICARE | LOC: M LAB REF 18:08 | PROVIDERS: ATTEND Internal Medicine | DX: G40.309 Generalized idiopathic epilepsy and epileptic syndromes, not intractable, without status epilepticus (principal) ==

== ENCOUNTER → 2024-11-17 | Outpatient (CLI) | payer MEDICARE | LOC: M PLALAB 11:25 | PROVIDERS: ATTEND Urology | DX: C61 Malignant neoplasm of prostate (principal) ==

== ENCOUNTER → 2025-03-12 | Outpatient (REF) | payer MEDICARE | LOC: M LAB REF 14:25 | PROVIDERS: ATTEND Internal Medicine | DX: G40.309 Generalized idiopathic epilepsy and epileptic syndromes, not intractable, without status epilepticus (principal) ==

== ENCOUNTER → 2025-07-27 | Outpatient (CLI) | payer MEDICARE | LOC: M WUC 12:17 | PROVIDERS: ATTEND Physician Assistant | DX: M25.562 Pain in left knee (principal); M17.12 Unilateral primary osteoarthritis, left knee; M11.262 Other chondrocalcinosis, left knee ==

== ENCOUNTER → 2025-08-13 | Outpatient (REF) | payer MEDICARE ==
[2025-08-13 17:29] LABS: SOURCE, BODY FLUID LFT KNEE
[2025-08-13 18:00] LABS: CRYSTALS, BODY FLUID NONE SEEN (NONE SEEN); SOURCE, BODY FLUID CRYSTALS LFT KNEE
== END ==
LOC: M LAB REF 16:30
PROVIDERS: ATTEND Physician Assistant
DX: M17.12 Unilateral primary osteoarthritis, left knee (principal)

== ENCOUNTER → 2025-09-11 | Outpatient (REF) | payer MEDICARE | LOC: M LAB REF 14:39 | PROVIDERS: ATTEND Internal Medicine | DX: G40.309 Generalized idiopathic epilepsy and epileptic syndromes, not intractable, without status epilepticus (principal) ==

== ENCOUNTER → 2025-09-28 | Outpatient (REF) | payer MEDICARE ==
[2025-09-28 15:04] LABS: VITAMIN B12 LEVEL 763.0 PG/ML (211-911)
[2025-10-01 10:52] LABS: VITAMIN E(ALPHA TOCOPHEROL) 13.0 mg/L (5.7-19.9); VITAMIN E(GAMMA TOCOPHEROL) 1.0 mg/L (<=4.3)
[2025-10-02 18:38] LABS: VITAMIN B6,PYRIDOXAL PHOSPHATE 5.4 ng/mL (2.1-21.7)
[2025-10-03 12:33] LABS: LAMOTRIGINE (LAMICTAL) 2.8 mcg/mL (2.5-15.0)
== END ==
LOC: M LAB REF 14:27
PROVIDERS: ATTEND Internal Medicine
DX: G40.309 Generalized idiopathic epilepsy and epileptic syndromes, not intractable, without status epilepticus (principal); R25.1 Tremor, unspecified

== ENCOUNTER → 2025-11-19 | Outpatient (CLI) | payer MEDICARE ==
[~2025-11-19] MED LIST changes: -BACTDSTA PO; +SULF-8 PO
== END ==
LOC: M PLALAB 10:27
PROVIDERS: ATTEND Urology
DX: C61 Malignant neoplasm of prostate (principal)